=== PATIENT | male | born 1995 | race Caucasian/White ===

== ENCOUNTER 2023-06-02 15:07 | Emergency (ER) | payer MEDICAID, SELFPAY ==
[2023-06-02 15:16] VITALS: BP 138/89; PULSE 89; RESP 14; TEMP 36.8; O2SAT 100; BMI 19.0
--- NOTE | 2023-06-02 15:18 | PC.NURSE ---
security at bedside for policy change clerk
--- NOTE | 2023-06-02 15:55 | ED_ITS ---
HPI - Overdose General Chief Complaint: Overdose Stated Complaint: OD HEROIN + NARCAN Time Seen by Provider: 06/02/23 15:53 Source: patient Mode of arrival: EMS Limitations: no limitations History of Present Illness HPI Narrative: 27 yo male hx of OUD s/p recent relapse by sniffing a bag of heroin - he overdosed denies trauma or SI he was given 4mg IN narcan with good response. He does not want MAT therapy now or detox. He will take narcan home with him. complaint: accidental overdose Onset (ago): minute(s) (prior to arrival ) Timing confirmed by: family member Context: Accidental Overdose: wanted to get high Associated symptoms: other (denies) Treatments Prior to Arrival: narcan Related Data Allergies Allergy/AdvReac Type Severity Reaction Status Date / Time poison fritz extract Allergy Unknown UNKNOWN Unverified 05/20/20 18:39 [POISON FRITZ] Review of Systems Review of Systems: Constitutional : No Fever, No Chills, No Fatigue Cardiovascular : No Chest Pain, No SOB, No Dyspnea on Exertion Respiratory : No Cough, No Sputum Gastrointestinal : No Nausea, No Vomiting, No Diarrhea, No abdominal Pain Genitourinary : No Dysuria, No Urinary Frequency, No Hematuria, Musculoskeletal : No joint pain, No Myalgias, No Joint Swelling Skin : No Skin Lesions, No rash Neuro : No Weakness, No Numbness, No Dizziness, no Headache Psych : No Anxiety/Panic, No Depression, no SI/HI All other systems reviewed and are negative [facility] Past Medical History Attestation statement: The following information was validated with the patient. Medical History Opiate abuse, episodic Social History Social History (Updated 06/02/23 @ 16:23 by Tracy Oconnell DO) Patient Tobacco Use Status: Tobacco use Unknown Substance Use Type: Heroin Physical Exam Vital Signs: Vital Signs: Last Vital Signs Temp 98.3 F 06/02/23 15:16 Pulse 89 06/02/23 15:16 Resp 14 06/02/23 15:16 BP 138/89 06/02/23 15:16 Pulse Ox 100 06/02/23 15:16 O2 Del Method Room Air 06/02/23 15:16 BMI result Body Mass Index 19.0 Appearance: Alert. Oriented X3. No acute distress. Eyes: Pupils equal, round and reactive to light. ENT: Pharynx normal. atraumatic Neck: Normal inspection. Neck supple. CVS: Normal heart rate and rhythm. Pulses normal. Respiratory: No respiratory distress. Breath sounds normal. Abdomen: Soft and nontender. Skin: Skin warm and dry. Normal skin color. Normal skin turgor. Extremities: No lower extremity edema. No calf ttp Neuro: Oriented X 3. No motor deficit. No sensory deficit. Medical Decision Making Medical Decision Making [facility] Narrative: 27 yo male who sniffed heroin to get high and overdosed on accident responded to [place] narcan - he has no trauma, SI/HI at this time will observe x 2 hours. Family at bedside - he declines SUDE evaluation and detox Differential Diagnosis Differential Diagnoses: The differential diagnosis associated with the presentation includes accidental overdose, opiate use disorder Admission/Observation Consideration of admission/observation: Escalation of care including admission/observation considered no need for admission at 2 hours no need for repeat narcan has reliable adult to leave with Independent Historian Clinical information obtained from an independent historian. History obtained from or confirmed by: Parent and EMS Prescription Management I considered prescription management with: Other (narcan to take home) Discharge Plan Discharge Clinical Impression: Opiate overdose Qualifiers: Encounter type: initial encounter Injury intent: accidental or unintentional Qualified Code(s): T40.601A - Poisoning by unspecified narcotics, accidental (unintentional), initial encounter Patient Disposition: Home, Self-Care Instructions: Adult Overdose (ED) Additional Instructions: carry narcan with you at all times. you can follow up with the [facility] as needed if you want suboxone or methadone. you can go to detox as well we will give you a list for both.
--- NOTE | 2023-06-02 16:38 | PC.NURSE ---
recovery team Will at bedside
--- NOTE | 2023-06-02 17:08 | HO.SUDE ---
Met with pt in ED17 to complete SUDE after OD. Pt reports having been sober for about 7 years with no history of ATS or MAT. Pt used for the first time today as it was around, pt used about 1/2 a bag nasally and has had 2 previous OD with the most recent being 7 years ago. Pt is not currently interested in ATS or any recovery resources but is open to contacting a RC in the community. Recovery resources provided and reviewed harm reduction and overdose prevention, pt verbalized understanding and has no other questions or concerns at this time.
[2023-06-02] MEDS: Naloxone HCl Nasal TAKE HOME 4 MG SPRAY 8 MG NOSTRILALT (17:18)
== END 2023-06-02 17:30 | disposition home or self-care (01) ==
PROVIDERS: Emergency Provider Emergency Medicine
DX: T40.1X1A Poisoning by heroin, accidental (unintentional), initial encounter (principal); F11.10 Opioid abuse, uncomplicated; X58.XXXA Exposure to other specified factors, initial encounter
CPT/HCPCS: 99282; 99283